=== PATIENT | female | born 1990 | race Caucasian/White ===

== ENCOUNTER 2019-04-21 13:15 | Emergency (ER) | payer OTHER ==
[~2019-04-21] VITALS: Ht 157.5 cm; Wt 81.0 kg
[2019-04-21 14:45] VITALS: BP 138/78
== END 2019-04-21 14:50 | disposition home or self-care (01) ==
LOC: M ED 13:15
DX: J30.9 Allergic rhinitis, unspecified (principal)

== ENCOUNTER → 2020-09-16 | Outpatient (CLI) | payer MEDICAID, OTHER ==
--- NOTE | 2020-09-16 18:25 | REP ---
INDICATION: INAPPROP CHG QUANTITAV HCG IN EARLY COMPARISON: None. TECHNIQUE: Transabdominal 1st trimester obstetrical ultrasound with color Doppler evaluation. FINDINGS: Uterus measures 12.6 x 7.4 x 5.9 cm. Single live early intrauterine is appreciated. Gestational sac with yolk sac and pole identified. [place]-rump length of 8 mm corresponds to 6 weeks 5 days gestational age with estimated date of delivery 05/07/2021. heart rate equals 127 beats per minute. No gross abnormalities are identified. Maternal ovaries are normal in appearance. Right ovary measures 4.3 x 2.9 x 2.9 cm. Left ovary measures 2.5 x 1.7 x 1.6 cm. IMPRESSION: Single live early intrauterine at 6 weeks 5 days gestational age. Complete anatomical assessment should be performed and 19-20 weeks. <Electronically signed by Nathaniel Cotter > 09/16/20 [id number]
== END ==
LOC: M LAB 17:48
PROVIDERS: ATTEND Physician Assistant Medical
DX: O02.81 Inappropriate change in quantitative human chorionic gonadotropin (hCG) in early pregnancy (principal)